=== PATIENT | female | born 1980 | race Caucasian/White ===

== ENCOUNTER 2020-07-24 06:25 | Inpatient (IN) ==
[2020-07-24] MEDS ORDERED: ANCEF VIAL 1 GRAM IVP ONE (06:33)
[2020-07-24] MEDS ORDERED: ANCEF 1 GRAM IV PREMIX* 2 G/100 ML BAG IV ONE (06:35)
[2020-07-24] MEDS ORDERED: BETADINE SOLN ONE (06:40)
[2020-07-24] MEDS ORDERED: ProvayBLUE 0.5% ONE ×2 (06:40→07:06)
[2020-07-24] MEDS: D5 1/2 NS 1000 ML 1,000 ML IV SCH ×3 (07:00→23:03)
[2020-07-24 07:02] VITALS: BMI 32.5
[2020-07-24] MEDS ORDERED: FENTANYL INJ 250 mcg ONE (07:13)
[2020-07-24] MEDS ORDERED: DROPERIDOL ONE (07:13)
[2020-07-24] MEDS ORDERED: XYLOCAINE 2 % (PLAIN) ONE (07:16)
[2020-07-24] MEDS ORDERED: VERSED ONE (07:16)
[2020-07-24] MEDS ORDERED: SUPRANE ONE ×2 (07:16→07:52)
[2020-07-24] MEDS ORDERED: LTA KIT LIDOCAINE 4% ONE (07:16)
[2020-07-24] MEDS ORDERED: TORADOL 30 MG VIAL ONE (07:16)
[2020-07-24] MEDS ORDERED: DIPRIVAN VIAL ONE (07:16)
[2020-07-24] MEDS ORDERED: QUELICIN (OR ANECTINE) ONE (07:16)
[2020-07-24] MEDS ORDERED: ZOFRAN INJ 4 MG VIAL ONE (07:16)
[2020-07-24] MEDS ORDERED: NORCURON INJ 10 MG VIAL ONE (07:16)
[2020-07-24] MEDS ORDERED: ROBINUL ONE (07:16)
[2020-07-24] MEDS ORDERED: NEOSTIGMINE INJ ONE (07:16)
[2020-07-24] MEDS ORDERED: NS 1000 ML 1,000 ML ONE (07:51)
[2020-07-24] MEDS ORDERED: FENTANYL INJ 100 mcg ONE (08:33)
[2020-07-24] MEDS ORDERED: DILAUDID INJ ONE (10:02)
[2020-07-24] MEDS ORDERED: D5 1/2 NS 1000 ML 1,000 ML IV ONE (10:09)
[2020-07-24] MEDS ORDERED: BENADRYL INJ 50 MG VIAL IVP PRN ×2 (10:11→10:17)
[2020-07-24] MEDS ORDERED: REGLAN INJ 10 MG VIAL IVP PRN (10:11)
[2020-07-24] MEDS ORDERED: ZOFRAN INJ 4 MG VIAL IVP PRN ×2 (10:11→10:17)
[2020-07-24] MEDS ORDERED: PHENERGAN INJ 25 MG IM PRN (10:11)
[2020-07-24] MEDS ORDERED: DILAUDID INJ IVP PRN (10:11)
[2020-07-24] MEDS ORDERED: TORADOL 30 MG VIAL IVP PRN (10:17)
[2020-07-24] MEDS ORDERED: MORPHINE SULFATE PCA 30 MG IVP PRN (10:17)
[2020-07-24] MEDS ORDERED: D5 1/2 NS 1000 ML 1,000 ML IV SCH (10:17)
[2020-07-24] MEDS ORDERED: NS IRRIGATION* 500 ML IR ONE (14:38)
[2020-07-24] MEDS ORDERED: NS IRRIGATION* 1,000 ML ONE (14:38)
--- OUTSIDE RECORDS SUMMARY | 2020-07-24 16:35 | XMS | Continuity of Care Document ---
:1980 Author Name [employer], System Address Unavailable Unavailable , Care Team Providers Name Role Phone No, PCP Unavailable Unavailable Cora POOL, Courtney Unavailable Evelin POOL, Aime Unavailable Camille Woods Unavailable Shalini Tello Unavailable Unavailable Unavailable Unavailable Problems Name Dates Details Diabetes Mellitus Status: Active Elevated blood pressure reading (R03.0, 796.2) Comments: Patient reports no prior hx of HTN, not on any medications. She gets very anxious coming to the clinic and has been taking care of her fiance manage his health so reports being stressed.Discussed checki ng BP at home and br inging a logWill check labs today Status: Active HTN (hypertension) (I10, 401.9) Comments : Will start low dose lisinopril, monitor BP at homeBP: 144/ 100 136/102 Status: Active Hyperlipidemia, mixed (E78.2, 272.2) Com ments: Continue simvastatin 10 mgDiscussed lifestyle changes including dietary modifications and exerciseLipid panel (05/30/20)TG 549 TC 251 HDL 36 LDL 105 Status: Active Otitis of right ear (H66.91, 382.9) Comm ents: Completed course of abx and steroidsReports intermittent ear pain and pressure, also reports hearing loss on that side Will refer to ENT Status: Active Type 2 diabetes mellitus (E11.9, 250.00) Comments: Continue metforminIncrease glyburide to 5 mg BID Discussed checking FS 2-3 times a day Bring log to next visit F/U in 4 weeks05/30/20 A1C 13.4%Normal renal function Status: Active Women's annual routine gynecological examination (Z01.419, V 72.31) Status: Active Medications Name Dates Details glyBURIDE 5 MG Oral Tablet 1 (one) Tablet twice a day for 30 days Quantity: 60 {Tablet} Refills: 1 Ordered:27-Jun-2020 Courtney Shepherd MD Start : 27-Jun-2020 Active Ibuprofen 800 MG Oral Tablet 1 (one) Tablet daily, as needed for 30 days Quantity: 30 {Tablet} Refills: 1 Ordered:27-Jun-2020 OmerShalini wang Start : 27-Jun-2020 Active Comments:Medication taken as needed. Lisinopril 2.5 MG Oral Tablet 1 (one) Tablet daily for 90 days Quantity: 90 {Tablet} Refills: 1 Ordered:27-Jun-2020 Courtney Shepherd MD Start : 27-Jun-2020 Active metFORMIN HCl 1000 MG Oral Tablet 1 Tablet two times daily for 90 days Quantity: 180 {Tablet} Refills: 1 Ordered:27-Jun-2020 Courtney Shepherd MD Start : 27-Jun-2020 Active Simvastatin 10 MG Oral Tablet 1 (one) Tablet at bedtime for 90 days Quantity: 90 {Tablet} Refills: 1 Ordered:27-Jun-2020 Courtney Shepherd MD Start : 27-Jun-2020 Active Amoxicillin-Pot Clavulanate 875-125 MG Oral Tablet 1 (one) Tablet two times daily for 10 days Quantity: 20 {Tablet} Refills: 0 Ordered:03-Jun-2020 Courtnye Shepherd MD Start : 03-Jun-2020 End : 13-Jun-2020 Inactive No Known Historical Medications predniSONE 20 MG Oral Tablet 1 (one) Tablet daily for 5 days Quantity: 5 {Tablet} Refills: 0 Ordered:03-Jun-2020 Courtney Shepherd MD Start : 03-Jun-2020 End : 08-Jun-2020 Inactive Allergies and Adverse Reactions Name Dates Details No Known Drug Allergies (Allergy) Onset: 30-May-2020 Status : Active Procedures Procedure Dates Details VENIPUNCTURE FOR BLOOD TEST (79966) Date: 03-Jun-2020 Comp leted 03-Jun-2020 No pertinent past surgical history Compl eted Family History Unknown Family Member Name Dates Details Arthritis Comments: Mother. Status: Active Depression Comments: Sister. Status: Active Diabetes Mellitus Comments: Mother. Status: Active Heart Disease Comments: Mother. Status: Active Hypertension Comments: Father. Mo ther. Brother. Sister. Status: Active Respiratory Condition Comments: Father. Status: Active Social History Name Dates Details Alcohol use: Occasional alcohol use. Drinks wine. Status: Active Caffeine use: Coffee. Carbonated beverages. 3 servings/day. Status: Active Exercise: 5 x week. walking. stretching. yardwork. housework . Status: Active No drug use Status: Active Seat Belt Use: Always uses seat belts. S tatus: Active Tobacco / smoke exposure: Daily. Status: Active Tobacco use: Former smoker. Status: Acti ve Smoking Status Name Dates Details Ex-smoker (finding) Vital Signs Date Test Result Details :35 Body temperature 97.9 f Comments: Metho d: Tympanic Heart Rate 95 /min Comments: Pattern: R egular Respiratory rate 18 /min Comments: Pattern: U nlabored O2 SAT 96 % Comments: Room air Systolic blood pressure 144 mm[Hg] Comments: Patien t Position: Sitting; Cuff Location: Left Arm; Cuff Size: Standard Diastolic blood pressure 100 mm[Hg] Comments: Patie nt Position: Sitting; Cuff Location: Left Arm; Cuff Size: Standard Weight 223.125 lb :32 Body temperature 97.7 f Comments: Meth od: Tympanic Heart Rate 110 /min Comments: Pattern: R egular Respiratory rate 20 /min Comments: Pattern: U nlabored O2 SAT 94 % Comments: Room air Systolic blood pressure 162 mm[Hg] Comments: Patien t Position: Sitting; Cuff Location: Left Arm; Cuff Size: Standard Diastolic blood pressure 102 mm[Hg] Comments: Patie nt Position: Sitting; Cuff Location: Left Arm; Cuff Size: Standard Weight 224 lb Results Date Description Value Details No Result Information Available Plan of Care Name Dates Details Instructions Follow up in 1 month Start: 02-Jun-2020 Instruction Type: Provider Instructions for Treatment Indication: Type 2 diabetes mellitus Planned Observations LIPID PANEL ([id number])Indication: Hyperlipidemia, mixed On: :08 Request THYROXINE FREEIndication: Elevated blood pressure reading On : :07 Request TSH (THYROID STIMULATING HORMONE) ([id number] )Indication: Elevated blood pressure reading On: :07 Request CBC, PLATELETS & AUT DIFF ([id number])Indication: Type 2 di abetes mellitus On: [id number] Request HGB A1C ([id number])Indication: Type 2 diabetes mellitus On: :07 Request CMP ([id number])Indication: Type 2 diabetes mellitus On: 94620:07 Request Encounters Review On: 24-Jul-2020 16:18 [facility] Office Visit On: 27-Jun-2020 14:35 Encounter Reason: Follow Up - Patient is here for a monthly follow up. Needs refills on medication. BP is 144/100, 136/102. Patient states she got her medication yesterday.Encounter Diagnosis: Hyperlipidemia, mixed, Type 2 diabetes mellitus, End: 01-Jul-2020 14:19 Otitis of right ear, HTN (hypertension) [facility] Office Visit On: 30-May-2020 13:10 Encounter Reason: Establish care. - Sara ent is here to establish care. Patient's blood pressure is 162/102, she states she takes no BP medications at this time. Encounter Diagnosis: Type 2 diabetes mellitus, Elevated blood pressure reading, End: 03-Jun-2020 9:08 Hyperlipidemia, mixed, Otitis of right e ar, Women's annual routine gynecological examination [facility] Payers [employer] of [employer]; a guarantor
[2020-07-24] MEDS: HumuLIN R SUBCUT PRN ×2 (17:27→21:19)
[2020-07-24] MEDS: SNACK - Diabetic Appropriate PO SCH (20:03)
[2020-07-25] MEDS: D5 1/2 NS 1000 ML 1,000 ML IV SCH ×2 (04:00→06:04)
[2020-07-25 04:41] LABS: BASOPHILS % (AUTO) 0.3 % (0.2-1.0); EOSINOPHILS % (AUTO) 0.4 % (0.9-2.9); HEMATOCRIT 41.3 % (36.0-47.0); HEMOGLOBIN 13.9 g/dL (12.0-16.0); LYMPHOCYTES # (AUTO) 2.5 X10^3/uL (1.3-2.9); LYMPHOCYTES % (AUTO) 20.5 % (21.0-51.0); MEAN CORPUSCULAR HEMOGLOBIN 29.3 pg (27.0-34.0); MEAN CORPUSCULAR HGB CONC 33.6 g/dL (33.0-35.0); MEAN CORPUSCULAR VOLUME 87.2 fL (80.0-100.0); MONOCYTES # (AUTO) 1.3 x10^3/uL (0.3-0.8); MONOCYTES % (AUTO) 10.7 % (0.0-13.0); NEUTROPHILS # (AUTO) 8.2 x10^3/uL (2.2-4.8); NEUTROPHILS % (AUTO) 68.1 % (42.0-75.0); PLATELET COUNT 204 X10^3/uL (150.0-450.0); RED BLOOD COUNT 4.74 X10^6/uL (3.5-5.4); RED CELL DISTRIBUTION WIDTH 13.9 % (11.6-16.5)
[2020-07-25 04:50] LABS: BLOOD UREA NITROGEN 12 mg/dL (7-18); CHLORIDE 99 mmol/L (98-107); COR NA(FOR HYPERGLY) 134 mmol/L (136-145); SODIUM 131 mmol/L (136-145); eGFR NON BLACK RACES > 60 (>60)
[2020-07-25] MEDS: HumuLIN R SUBCUT PRN (06:35)
[2020-07-25] MEDS ORDERED: PERCOCET TAB 5/325 MG PO PRN (07:39)
[2020-07-25] MEDS ORDERED: ZESTRIL TAB 5 MG PO SCH (09:00)
[2020-07-25] MEDS ORDERED: ESTRACE PO SCH (09:00)
[2020-07-25] MEDS: COLACE CAP 100 MG PO SCH ×2 (09:16→21:00)
[2020-07-25] MEDS: MOTRIN TAB 800 MG PO PRN ×2 (09:17→22:00)
[2020-07-25] MEDS: BACTROBAN TOPICAL OINT TOP SCH ×2 (13:49→22:00)
[2020-07-25] MEDS ORDERED: GLUCOPHAGE ONE (17:34)
[2020-07-25] MEDS: GLUCOPHAGE PO SCH (17:35)
[2020-07-25] MEDS: DIABETA PO SCH (17:35)
[2020-07-25] MEDS ORDERED: SNACK - Diabetic Appropriate PO SCH (20:00)
[2020-07-25] MEDS: SNACK - Diabetic Appropriate PO SCH (21:00)
[2020-07-25] MEDS ORDERED: ZOCOR TAB 10 MG PO SCH (21:00)
[2020-07-26] MEDS ORDERED: GLUCOPHAGE ONE (05:27)
[2020-07-26] MEDS: BACTROBAN TOPICAL OINT TOP SCH (05:32)
[2020-07-26] MEDS: GLUCOPHAGE PO SCH (06:17)
[2020-07-26] MEDS: DIABETA PO SCH (06:18)
[2020-07-26 08:20] VITALS: BP 147/94
== END 2020-07-26 08:35 | disposition home or self-care (01) | DRG 743 ==
LOC: MED/SURG 06:25
PROVIDERS: ADMIT Specialist; ATTEND Specialist
DX: R10.2 Pelvic and perineal pain; E11.65 Type 2 diabetes mellitus with hyperglycemia; I10 Essential (primary) hypertension; N94.4 Primary dysmenorrhea; E78.2 Mixed hyperlipidemia; N92.5 Other specified irregular menstruation